=== PATIENT | female | born 1970 | race Caucasian/White ===

== ENCOUNTER 2017-07-15 18:26 | Inpatient (IN) | payer MEDICAID ==
[~2017-07-15] VITALS: Ht 157.5 cm; Wt 73.6 kg
[2017-07-15 19:56] LABS: UA SPECIFIC GRAVITY 1.015 (1.005-1.035); microscopic required? YES; urine erythrocyte 3+ (NEGATIVE)
[2017-07-15 20:00] LABS: BASOPHIL % 0.6 % (0-2); CALCIUM 8.2 mg/dL (8.5-10.1); CARBON DIOXIDE 26.5 mmol/L (21-32); CHLORIDE SERUM 105 mmol/L (98-107); CREATININE SERUM 0.6 mg/dL (0.6-1.0); GFR1 > 60 mL/min; GLUCOSE SERUM 98 mg/dL (74-106); PLATELET COUNT 199 x10^3mcL (130-400); POTASSIUM SERUM 3.3 mmol/L (3.5-5.1); RED CELL DISTRIBUTION WIDTH 13.5 % (11.5-14.5); SODIUM SERUM 141 mmol/L (136-145)
[2017-07-15 20:04] LABS: ALKALINE PHOSPHATASE 56 U/L (46-116); ALT/SGPT 22 U/L (14-59); AMYLASE 51 U/L (25-115); AST/SGOT 22 U/L (15-37); BILIRUBIN TOTAL 0.44 mg/dL (0.20-1.00); LIPASE 99 IU/L (73-393); TOTAL PROTEIN, SERUM 6.6 g/dL (6.4-8.2)
[2017-07-15 20:05] LABS: ALBUMIN 3.3 g/dL (3.4-5.0)
[2017-07-15 20:10] LABS: AMPHETAMINE QUAL UR NONE DETECTED (NEG <=1000)
[2017-07-15 20:18] LABS: CHOLESTEROL 150 mg/dL (<200)
[2017-07-15 20:20] LABS: HDL CHOLESTEROL 64 mg/dL (40-60)
[2017-07-16 01:39] LABS: MAGNESIUM 1.9 mg/dL (1.8-2.4); PHOSPHOROUS 2.8 mg/dL (2.5-4.9)
[2017-07-16 01:43] LABS: CHOLESTEROL/HDL RATIO 2.4
[2017-07-16 01:48] LABS: FREE T4 1.13 ng/dL (0.76-1.46); T4(THYROXINE) 9.5 ug/dL (4.7-13.3)
[2017-07-16 01:55] VITALS: BP 139/76
[2017-07-16 02:10] LABS: T3 TOTAL 1.1 ng/mL
[2017-07-16 05:31] VITALS: BP 147/79
[2017-07-16 06:43] LABS: BASOPHIL % 0.7 % (0-2); PLATELET COUNT 190 x10^3mcL (130-400); RED CELL DISTRIBUTION WIDTH 13.7 % (11.5-14.5)
[2017-07-16 06:57] LABS: CALCIUM 7.7 mg/dL (8.5-10.1); CARBON DIOXIDE 24.6 mmol/L (21-32); CHLORIDE SERUM 110 mmol/L (98-107); CREATININE SERUM 0.5 mg/dL (0.6-1.0); GFR1 > 60 mL/min; GLUCOSE SERUM 94 mg/dL (74-106); POTASSIUM SERUM 3.7 mmol/L (3.5-5.1); SODIUM SERUM 144 mmol/L (136-145)
[2017-07-16 09:36] VITALS: BP 139/70
[2017-07-16 16:50] VITALS: BP 132/62
[2017-07-16 21:19] VITALS: BP 114/70
[2017-07-17] MEDS ORDERED: MAC100 PO (06:17)
[2017-07-17] MEDS ORDERED: LAC PO (06:17)
[2017-07-17 06:20] LABS: BASOPHIL % 1.6 % (0-2); PLATELET COUNT 194 x10^3mcL (130-400); RED CELL DISTRIBUTION WIDTH 13.7 % (11.5-14.5)
[2017-07-17 06:30] LABS: CALCIUM 7.4 mg/dL (8.5-10.1); CARBON DIOXIDE 24.9 mmol/L (21-32); CHLORIDE SERUM 111 mmol/L (98-107); CREATININE SERUM 0.5 mg/dL (0.6-1.0); GFR1 > 60 mL/min; GLUCOSE SERUM 84 mg/dL (74-106); MAGNESIUM 1.9 mg/dL (1.8-2.4); PHOSPHOROUS 2.5 mg/dL (2.5-4.9); POTASSIUM SERUM 3.4 mmol/L (3.5-5.1); SODIUM SERUM 145 mmol/L (136-145)
[2017-07-17 06:31] VITALS: BP 113/72
[2017-07-17] MEDS ORDERED: COLACE100 MG PO (06:31)
[2017-07-17 09:40] VITALS: BP 104/77
[2017-07-17 10:39] VITALS: BP 104/77
== END 2017-07-17 11:35 | disposition home or self-care (01) | DRG 247 ==
LOC: ED 18:26 → MU 07-16 00:47 → DU 07-16 00:47 → MU 07-16 09:31
PROVIDERS: Emergency Medicine; Family Medicine
DX: K56.7 Ileus, unspecified (principal); N17.0 Acute kidney failure with tubular necrosis; E44.0 Moderate protein-calorie malnutrition; E83.51 Hypocalcemia; N39.0 Urinary tract infection, site not specified; E87.6 Hypokalemia; D64.9 Anemia, unspecified; Z68.29 Body mass index [BMI] 29.0-29.9, adult
CPT/HCPCS: 83880; 84439; J1885; J1956; J2001; J3480; J7030; Q0092; Q9966

== ENCOUNTER 2020-01-26 18:50 | Emergency (ER) | payer OTHER ==
[~2020-01-26] VITALS: Ht 157.5 cm; Wt 73.9 kg
[~2020-01-26 18:50] MED LIST: COLACE100 MG PO; LAC PO; MAC100 PO
[2020-01-26 19:03] VITALS: Ht 157.5 cm; Wt 73.9 kg
[2020-01-26 19:49] LABS: BASOPHIL % 0.5 % (0-2); PLATELET COUNT 223 x10^3mcL (130-400); RED CELL DISTRIBUTION WIDTH 12.6 % (11.5-14.5)
[2020-01-26 20:00] LABS: CALCIUM 8.7 mg/dL (8.5-10.1); CARBON DIOXIDE 26.3 mmol/L (21-32); CHLORIDE SERUM 102 mmol/L (98-107); CREATININE SERUM 0.9 mg/dL (0.6-1.0); GFR1 > 60 mL/min; GLUCOSE SERUM 155 mg/dL (74-106); POTASSIUM SERUM 3.3 mmol/L (3.5-5.1); SODIUM SERUM 138 mmol/L (136-145)
[2020-01-26 20:04] LABS: ALBUMIN 3.4 g/dL (3.4-5.0); ALKALINE PHOSPHATASE 65 U/L (46-116); ALT/SGPT 22 U/L (14-59); AST/SGOT 16 U/L (15-37); BILIRUBIN TOTAL 0.4 mg/dL (0.20-1.00); LIPASE 75 IU/L (73-393); TOTAL PROTEIN, SERUM 6.8 g/dL (6.4-8.2)
[2020-01-26 22:35] VITALS: BP 131/75
== END 2020-01-26 22:35 | disposition home or self-care (01) ==
LOC: ED 18:50
PROVIDERS: Emergency Medicine
DX: E87.6 Hypokalemia (principal); R42 Dizziness and giddiness; I10 Essential (primary) hypertension; Z90.49 Acquired absence of other specified parts of digestive tract
CPT/HCPCS: Q0092